=== PATIENT | female | born 1965 | race Caucasian/White ===

== ENCOUNTER 2020-12-24 17:36 | Emergency (ER) | payer MEDICARE, MEDICAID ==
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
== END 2020-12-24 18:48 | disposition home or self-care (01) ==
LOC: JP.ED 17:36
DX: M79.81 Nontraumatic hematoma of soft tissue (principal); R23.3 Spontaneous ecchymoses; R00.0 Tachycardia, unspecified; Z72.0 Tobacco use
CPT/HCPCS: 36415; 85025; 99283